=== PATIENT | female | born 1975 ===

== ENCOUNTER 2017-09-03 20:29 | Inpatient (IN) ==
[2017-09-03] MEDS ORDERED: VANCOMYCIN INJ 1,000 MG in SODIUM CHLORIDE 0.9% 250 ML IV STA (21:00)
[2017-09-03] MEDS ORDERED: SODIUM CHLORIDE 0.9% 1,000 ML IV STA (21:00)
[2017-09-03 21:37] LABS: Basophils # 0.1 10*3/uL (0.0-0.2); Basophils % 0.3 % (0.0-0.8); Eosinophils # 0.4 10*3/uL (0.0-0.87); Eosinophils % 1.9 % (0.00-10.9); Hematocrit 36.9 VOL% (35.7-47.0); Hemoglobin 13.2 GM/DL (12.0-16.0); Immature Granulocytes % 0.8 %; Immature Granulocytes Absolute 0.15 #; Lymphocytes # 3.6 10*3/uL (1.4-4.0); Mean Corpuscular HGB Conc 35.8 GM/DL (32-36); Mean Corpuscular Hemoglobin 31 PG (27-34); Mean Platelet Volume 9.7 FL (9.6-12.0); Monocytes # 1.2 10*3/uL (0.11-0.8); Monocytes % 6.6 % (1.7-12.7); Neutrophils # 13.4 10*3/uL (1.4-7.4); Neutrophils % 71.4 % (38.7-73.9); Platelet Count 227 T/CUMM (130-400); Red Blood Count 4.24 MC/CUMM (3.8-5.5); White Blood Count 18.7 T/CUMM (4-12)
[2017-09-03 21:47] LABS: PT Patient Result 10.7 SECS
[2017-09-03 21:53] LABS: Calcium 8.1 MG/DL (8.5-10.1); Osmolality,Calculated 277.2 MOS/KG (273-304); Potassium 3.5 MMOL/L (3.5-5.1)
[2017-09-03] MEDS ORDERED: GLUCAGON 1 MG VIAL IM PRN (23:04)
[2017-09-03] MEDS ORDERED: ONDANSETRON 4 MG/2 ML VIAL IV PRN (23:04)
[2017-09-03] MEDS ORDERED: MORPHINE 4 MG/1 ML VIAL IV PRN (23:04)
[2017-09-03] MEDS ORDERED: ACETAMINOPHEN 325 MG TABLET PO PRN (23:04)
[2017-09-03] MEDS ORDERED: DEXTROSE 50% 25 GM/50 ML VIAL IV PRN (23:04)
[2017-09-03] MEDS: traMADol 50 MG TABLET PO SCH (23:37)
[2017-09-03] MEDS: PARoxetine 20 MG TABLET PO SCH (23:37)
[2017-09-03] MEDS: SIMVASTATIN 20 MG TABLET PO SCH (23:37)
[2017-09-03] MEDS: LACTATED RINGERS 1,000 ML IV SCH (23:38)
[2017-09-04] MEDS ORDERED: VANCOMYCIN INJ 1,500 MG in SODIUM CHLORIDE 0.9% 500 ML IV SCH (05:00)
[2017-09-04] MEDS ORDERED: BUPIVACAINE MPF 0.25% /EPI 30 ML VIAL ONE (06:45)
[2017-09-04] MEDS ORDERED: LIDOCAINE 1%/EPI INJ 20 ML VIAL ONE (06:45)
[2017-09-04] MEDS: ASPIRIN EC 81 MG TABLET PO SCH (10:56)
[2017-09-04] MEDS: GABAPENTIN 300 MG CAPSULE PO SCH ×2 (10:56→21:20)
[2017-09-04] MEDS: PANTOPRAZOLE 40 MG TABLET PO SCH (10:57)
[2017-09-04] MEDS: traMADol 50 MG TABLET PO SCH ×2 (10:57→21:20)
[2017-09-04] MEDS: INSULIN REGULAR 100 UNIT/ML SUBCUT SCH ×4 (11:30→21:18)
[2017-09-04] MEDS ORDERED: SEVOFLURANE 1 UNIT/15 MINUTE INH ONE (12:22)
[2017-09-04] MEDS ORDERED: MIDAZOLAM 2 MG/2 ML VIAL ONE (12:22)
[2017-09-04] MEDS ORDERED: PROPOFOL 200 MG/20 ML VIAL IV ONE (12:22)
[2017-09-04] MEDS ORDERED: fentaNYL 100 MCG/2 ML VIAL ONE (12:22)
[2017-09-04] MEDS ORDERED: LACTATED RINGERS 1,000 ML IV ONE (12:23)
[2017-09-04] MEDS ORDERED: ONDANSETRON 4 MG/2 ML VIAL ONE (12:23)
[2017-09-04] MEDS: LACTATED RINGERS 1,000 ML IV SCH ×2 (15:47→15:48)
[2017-09-04] MEDS: SULFAMETHOX/TRIMETHOPRIM 800-160 MG TABLET PO SCH ×2 (15:55→21:20)
[2017-09-04] MEDS ORDERED: ENOXAPARIN 40 MG/0.4 ML SYRINGE SUBCUT SCH (16:00)
[2017-09-04] MEDS: SIMVASTATIN 20 MG TABLET PO SCH (21:20)
[2017-09-04] MEDS: PARoxetine 20 MG TABLET PO SCH (21:20)
[2017-09-05] MEDS: LACTATED RINGERS 1,000 ML IV SCH ×2 (00:15→08:28)
[2017-09-05 06:38] LABS: Basophils % 0.4 % (0.0-0.8); Eosinophils # 0.6 10*3/uL (0.0-0.87); Hematocrit 34.1 VOL% (35.7-47.0); Hemoglobin 11.7 GM/DL (12.0-16.0); Immature Granulocytes Absolute 0.09 #; Lymphocytes # 2.9 10*3/uL (1.4-4.0); Lymphocytes % 31.2 % (21.3-54.2); Mean Corpuscular HGB Conc 34.3 GM/DL (32-36); Mean Corpuscular Hemoglobin 31 PG (27-34); Mean Corpuscular Volume 90.2 FL (87-102); Mean Platelet Volume 9.6 FL (9.6-12.0); Monocytes # 0.7 10*3/uL (0.11-0.8); Monocytes % 7.1 % (1.7-12.7); Neutrophils # 5.1 10*3/uL (1.4-7.4); Neutrophils % 54.3 % (38.7-73.9); Platelet Count 194 T/CUMM (130-400); Red Blood Count 3.78 MC/CUMM (3.8-5.5); Red Cell Distribution Width 12.2 % (9.3-17.3); White Blood Count 9.4 T/CUMM (4-12)
[2017-09-05 06:58] LABS: Osmolality,Calculated 285.5 MOS/KG (273-304); Potassium 3.9 MMOL/L (3.5-5.1)
[2017-09-05 07:27] VITALS: BP 107/67
[2017-09-05] MEDS: INSULIN REGULAR 100 UNIT/ML SUBCUT SCH (08:03)
[2017-09-05] MEDS: ASPIRIN EC 81 MG TABLET PO SCH (08:04)
[2017-09-05] MEDS: GABAPENTIN 300 MG CAPSULE PO SCH (08:05)
[2017-09-05] MEDS: traMADol 50 MG TABLET PO SCH (08:05)
[2017-09-05] MEDS: SULFAMETHOX/TRIMETHOPRIM 800-160 MG TABLET PO SCH (08:06)
[2017-09-05] MEDS: PANTOPRAZOLE 40 MG TABLET PO SCH (08:16)
== END 2017-09-05 11:47 | disposition home or self-care (01) | DRG 603 ==
LOC: EDUNIT# → EDBD → N.ED 20:29 → N.EDINP 22:05 → N.5E 22:44
PROVIDERS: ADMIT Surgery; ATTEND Surgery

== ENCOUNTER 2018-12-02 11:57 | Inpatient (IN) ==
[2018-12-02 12:46] LABS: Basophils % 0.3 % (0.0-0.8); Eosinophils # 0.1 10*3/uL (0.0-0.87); Hemoglobin 13.3 GM/DL (12.0-16.0); Immature Granulocytes % 0.4 %; Immature Granulocytes Absolute 0.06 #; Lymphocytes # 2.4 10*3/uL (1.4-4.0); Lymphocytes % 17.2 % (21.3-54.2); Mean Corpuscular HGB Conc 34.1 GM/DL (32-36); Mean Corpuscular Volume 90.5 FL (87-102); Mean Platelet Volume 9.7 FL (9.6-12.0); Monocytes % 5.8 % (1.7-12.7); Neutrophils % 75.3 % (38.7-73.9); Platelet Count 210 T/CUMM (130-400); Red Blood Count 4.31 MC/CUMM (3.8-5.5); Red Cell Distribution Width 11.9 % (9.3-17.3); White Blood Count 14.1 T/CUMM (4-12)
[2018-12-02 13:05] LABS: Albumin 2.8 G/DL (3.4-5.0); Bilirubin,Total 0.8 MG/DL (0.2-1.0); Calcium 8.8 MG/DL (8.5-10.1); Osmolality,Calculated 289.3 MOS/KG (273-304); Total Protein 7.4 G/DL (6.4-8.3)
[2018-12-02] MEDS ORDERED: HYDROmorphone 2 MG/1 ML VIAL IV PRN (13:36)
[2018-12-02] MEDS ORDERED: ACETAMINOPHEN 325 MG TABLET PO PRN (13:36)
[2018-12-02] MEDS ORDERED: BISACODYL 5 MG TABLET PO PRN (13:36)
[2018-12-02] MEDS ORDERED: GLUCAGON 1 MG VIAL IM PRN (13:38)
[2018-12-02] MEDS ORDERED: DEXTROSE 10% 25 GM/250 ML BAG IV PRN (13:38)
[2018-12-02] MEDS ORDERED: hydrALAZINE 20 MG/1 ML VIAL IV PRN (13:44)
[2018-12-02] MEDS ORDERED: BUPIVACAINE 0.25% /EPI 10 ML VIAL ONE (13:49)
[2018-12-02] MEDS ORDERED: LIDOCAINE 1% 20 ML VIAL ONE (13:49)
[2018-12-02] MEDS: LACTATED RINGERS 1,000 ML IV SCH (14:00)
[2018-12-02] MEDS: PIPERACILLIN/TAZOBACTAM 3,375 MG in SODIUM CHLORIDE 0.9% 100 ML IV SCH ×2 (14:00→21:31)
[2018-12-02] MEDS ORDERED: HYDROmorphone 2 MG/1 ML VIAL ONE (14:43)
[2018-12-02] MEDS ORDERED: ONDANSETRON 4 MG/2 ML VIAL ONE ×2 (14:44→14:45)
[2018-12-02] MEDS ORDERED: fentaNYL 100 MCG/2 ML VIAL ONE (14:45)
[2018-12-02] MEDS ORDERED: SEVOFLURANE 1 UNIT/15 MINUTE INH ONE (14:45)
[2018-12-02] MEDS ORDERED: PROPOFOL 200 MG/20 ML VIAL IV ONE (14:45)
[2018-12-02] MEDS: HYDROmorphone 2 MG/1 ML VIAL IV PRN ×5 (14:45→19:51)
[2018-12-02] MEDS ORDERED: hydrALAZINE 20 MG/1 ML VIAL ONE (15:11)
[2018-12-02] MEDS ORDERED: ONDANSETRON 4 MG/2 ML VIAL IV PRN (15:12)
[2018-12-02] MEDS ORDERED: hydrALAZINE 20 MG/1 ML VIAL IV STA (15:14)
[2018-12-02] MEDS: INSULIN LISPRO 100 UNIT/ML SUBCUT SCH (17:16)
[2018-12-02] MEDS: ONDANSETRON 4 MG/2 ML VIAL IV PRN (17:17)
[2018-12-03] MEDS: ONDANSETRON 4 MG/2 ML VIAL IV PRN ×3 (00:11→14:23)
[2018-12-03] MEDS: HYDROmorphone 2 MG/1 ML VIAL IV PRN ×6 (00:11→19:44)
[2018-12-03] MEDS: LACTATED RINGERS 1,000 ML IV SCH ×4 (00:14→21:07)
[2018-12-03 04:11] LABS: Basophils % 0.2 % (0.0-0.8); Eosinophils # 0.2 10*3/uL (0.0-0.87); Eosinophils % 1.5 % (0.00-10.9); Hemoglobin 12.5 GM/DL (12.0-16.0); Immature Granulocytes % 0.4 %; Immature Granulocytes Absolute 0.06 #; Lymphocytes # 3.5 10*3/uL (1.4-4.0); Lymphocytes % 24.5 % (21.3-54.2); Mean Corpuscular HGB Conc 33.8 GM/DL (32-36); Mean Corpuscular Volume 91.1 FL (87-102); Mean Platelet Volume 9.5 FL (9.6-12.0); Monocytes % 5.3 % (1.7-12.7); Neutrophils % 68.1 % (38.7-73.9); Platelet Count 202 T/CUMM (130-400); Red Blood Count 4.06 MC/CUMM (3.8-5.5); Red Cell Distribution Width 11.9 % (9.3-17.3); White Blood Count 14.1 T/CUMM (4-12)
[2018-12-03] MEDS: PIPERACILLIN/TAZOBACTAM 3,375 MG in SODIUM CHLORIDE 0.9% 100 ML IV SCH ×3 (06:10→23:51)
[2018-12-03] MEDS: PANTOPRAZOLE 40 MG TABLET PO SCH (09:23)
[2018-12-03] MEDS: INSULIN LISPRO 100 UNIT/ML SUBCUT SCH ×4 (09:24→20:14)
[2018-12-03] MEDS: VANCOMYCIN INJ 1,750 MG in SODIUM CHLORIDE 0.9% 500 ML IV SCH ×2 (14:11→23:52)
[2018-12-03 14:47] LABS: Apearance,Urine CLEAR (Clear); Bilirubin,Urine Negative (Negative); Blood, Urine Negative (Negative); Glucose,Urine (UA) >=500 mg/dL (Negative); Ketones,Urine 5 mg/dL (Negative); Mucus,Urine Occasional /LPF (Occasional); Nitrite,Urine Negative (Negative); Protein,Urine 30 MG/DL; RBC,Urine 2 /HPF (0-4); Squamous Epithelial Cell,Urine Occasional /HPF (0-10); Urine Color Yellow (Yellow); Urine Specific Gravity 1.027 (1.001-1.035); Urine Urobilinogen < 2.0 EU/DL (0.2-1.0); WBC,Urine 1 /HPF (0-6)
[2018-12-03] MEDS: SIMVASTATIN 20 MG TABLET PO SCH (20:13)
[2018-12-03] MEDS: INSULIN GLARGINE 100 UNIT/ML SUBCUT SCH (20:13)
[2018-12-03] MEDS: GABAPENTIN 300 MG CAPSULE PO SCH (20:13)
[2018-12-04] MEDS: HYDROmorphone 2 MG/1 ML VIAL IV PRN ×4 (00:03→20:15)
[2018-12-04] MEDS: ONDANSETRON 4 MG/2 ML VIAL IV PRN ×4 (00:03→20:15)
[2018-12-04] MEDS: PIPERACILLIN/TAZOBACTAM 3,375 MG in SODIUM CHLORIDE 0.9% 100 ML IV SCH ×3 (05:38→21:11)
[2018-12-04 06:04] LABS: Basophils # 0.1 10*3/uL (0.0-0.2); Basophils % 0.5 % (0.0-0.8); Eosinophils # 0.3 10*3/uL (0.0-0.87); Eosinophils % 2.7 % (0.00-10.9); Hematocrit 35.4 VOL% (35.7-47.0); Hemoglobin 11.7 GM/DL (12.0-16.0); Immature Granulocytes % 0.8 %; Immature Granulocytes Absolute 0.08 #; Lymphocytes # 3.1 10*3/uL (1.4-4.0); Lymphocytes % 31.7 % (21.3-54.2); Mean Corpuscular HGB Conc 33.1 GM/DL (32-36); Mean Corpuscular Volume 92.9 FL (87-102); Mean Platelet Volume 9.3 FL (9.6-12.0); Monocytes % 8.4 % (1.7-12.7); Neutrophils % 55.9 % (38.7-73.9); Platelet Count 204 T/CUMM (130-400); Red Blood Count 3.81 MC/CUMM (3.8-5.5); Red Cell Distribution Width 11.9 % (9.3-17.3); White Blood Count 9.7 T/CUMM (4-12)
[2018-12-04 06:16] LABS: Calcium 8.2 MG/DL (8.5-10.1); Osmolality,Calculated 285.4 MOS/KG (273-304)
[2018-12-04 06:20] LABS: Risk Ratio 3.31; VLDL CHOLESTEROL 31.8 MG/DL
[2018-12-04] MEDS: VANCOMYCIN INJ 1,750 MG in SODIUM CHLORIDE 0.9% 500 ML IV SCH ×2 (07:52→14:25)
[2018-12-04] MEDS: INSULIN LISPRO 100 UNIT/ML SUBCUT SCH ×7 (08:18→20:21)
[2018-12-04] MEDS: PANTOPRAZOLE 40 MG TABLET PO SCH (08:39)
[2018-12-04] MEDS ORDERED: HYDROXYCHLOROQUINE 200 MG TABLET PO SCH (09:00)
[2018-12-04] MEDS ORDERED: LISINOPRIL 10 MG TABLET PO SCH (09:00)
[2018-12-04] MEDS: LACTATED RINGERS 1,000 ML IV SCH ×3 (10:30→21:12)
[2018-12-04] MEDS: LISINOPRIL 10 MG TABLET PO SCH (11:30)
[2018-12-04] MEDS: MAGNESIUM HYDROXIDE SUSP 30 ML UDCUP PO PRN ×2 (12:33→21:10)
[2018-12-04] MEDS: GABAPENTIN 300 MG CAPSULE PO SCH (20:13)
[2018-12-04] MEDS: SIMVASTATIN 20 MG TABLET PO SCH (20:14)
[2018-12-04] MEDS: INSULIN GLARGINE 100 UNIT/ML SUBCUT SCH (20:14)
[2018-12-05] MEDS: VANCOMYCIN INJ 1,750 MG in SODIUM CHLORIDE 0.9% 500 ML IV SCH ×2 (01:16→09:09)
[2018-12-05] MEDS: HYDROmorphone 2 MG/1 ML VIAL IV PRN ×3 (01:21→09:07)
[2018-12-05] MEDS: ONDANSETRON 4 MG/2 ML VIAL IV PRN (04:51)
[2018-12-05] MEDS: PIPERACILLIN/TAZOBACTAM 3,375 MG in SODIUM CHLORIDE 0.9% 100 ML IV SCH (05:03)
[2018-12-05 05:49] LABS: Basophils % 0.3 % (0.0-0.8); Eosinophils # 0.1 10*3/uL (0.0-0.87); Eosinophils % 1.3 % (0.00-10.9); Hematocrit 34.9 VOL% (35.7-47.0); Hemoglobin 11.7 GM/DL (12.0-16.0); Immature Granulocytes % 0.8 %; Immature Granulocytes Absolute 0.09 #; Lymphocytes # 2.3 10*3/uL (1.4-4.0); Mean Corpuscular HGB Conc 33.5 GM/DL (32-36); Mean Corpuscular Volume 91.8 FL (87-102); Mean Platelet Volume 9.7 FL (9.6-12.0); Monocytes % 8.9 % (1.7-12.7); Neutrophils % 67.7 % (38.7-73.9); Platelet Count 201 T/CUMM (130-400); Red Cell Distribution Width 11.9 % (9.3-17.3); White Blood Count 10.9 T/CUMM (4-12)
[2018-12-05 05:58] LABS: Calcium 8.4 MG/DL (8.5-10.1)
[2018-12-05] MEDS: INSULIN LISPRO 100 UNIT/ML SUBCUT SCH ×4 (09:01→12:40)
[2018-12-05] MEDS: LISINOPRIL 10 MG TABLET PO SCH (09:02)
[2018-12-05] MEDS: PANTOPRAZOLE 40 MG TABLET PO SCH (09:11)
[2018-12-05] MEDS: LACTATED RINGERS 1,000 ML IV SCH (09:11)
[2018-12-05 14:55] VITALS: BP 135/84
== END 2018-12-05 14:55 | disposition home or self-care (01) | DRG 988 ==
LOC: EDUNIT# → EDBD → N.ED 11:57 → N.EDINP 13:36 → N.3E 14:59
PROVIDERS: ADMIT Surgery; ATTEND Surgery